=== PATIENT | female | born 1985 | race Caucasian/White ===

== ENCOUNTER 2022-01-07 20:16 | Emergency (ER) | payer MEDICAID, SELFPAY ==
[~2022-01-07] VITALS: Ht 160 cm; Wt 108.9 kg
[2022-01-07 20:35] VITALS: BP_SYST 114
--- NOTE | 2022-01-07 21:07 | NUR ---
Placed in room 4 . Placed on youth nutritional monitor, blood pressure machine and pulse oximeter. To gown for exam. Side rails up. Report given to Ruy LAWSON(reg).
[2022-01-07 21:33] LABS: BASOPHILS % (AUTO) 0.2 % (0.0-2.0); EOSINOPHILS # (AUTO) 0.4 K/uL (0.0-0.4); EOSINOPHILS % (AUTO) 2.9 % (0.0-4.0); HEMATOCRIT 38.6 % (36-48); HEMOGLOBIN 13.1 g/dL (12.0-16.0); LYMPHOCYTES # (AUTO) 0.4 K/uL (1.0-5.5); MEAN CORPUSCULAR HEMOGLOBIN 28 pg (27-31); MEAN CORPUSCULAR HGB CONC 34 % (32-36); MEAN CORPUSCULAR VOLUME 82 fL (79.0-98.0); MONOCYTES # (AUTO) 0.3 K/uL (0.0-1.0); MONOCYTES % (AUTO) 2.3 % (1.7-9.3); NEUTROPHILS # (AUTO) 13.6 K/uL (1.8-7.7); NEUTROPHILS % (AUTO) 91.6 % (40.0-70.0); PLATELET COUNT (AUTO) 184 K/uL (130-430); RED CELL DISTRIBUTION WIDTH 14.4 % (9.0-15.0); WHITE BLOOD COUNT (AUTO) 14.9 K/uL (4.8-10.8)
[2022-01-07 21:40] LABS: CALCIUM 9.3 mg/dL (8.4-11.0); CREATININE 0.9 mg/dL (0.55-1.30); POTASSIUM 4.1 mmol/L (3.5-5.1)
[2022-01-07 21:46] LABS: ALBUMIN 3.5 g/dL (3.4-4.8); TOTAL BILIRUBIN 0.7 mg/dL (0.0-1.0)
--- NOTE | 2022-01-07 22:15 | NUR ---
ER at bedside examining patient.
[2022-01-07] MEDS ORDERED: ACETAMINOPHEN 500 MG TABLET PO ONE (22:30)
[2022-01-07] MEDS ORDERED: NACL 0.9% 1,000 ML IV ONE (22:30)
[2022-01-07] MEDS ORDERED: ONDANSETRON 4 MG ODT TAB PO ONE (22:45)
[2022-01-07] MEDS ORDERED: ACETAMINOPHEN 500 MG TABLET ONE (22:54)
[2022-01-07] MEDS ORDERED: HYDROcodone/ACETAMIN 10-325 MG TAB PO ONE (23:00)
[2022-01-07] MEDS ORDERED: ACETAMINOPHEN 325 MG TABLET PO ONE (23:00)
--- NOTE | 2022-01-08 01:44 | NUR ---
pt is ALOx4 is complaning for Chest apin, headache, and generalize pain. She has history of Lupus, Fibromylagia and missed sometimes the medication. she was admitted in other hospital for vomiting with diagnosis bad or cold virus.
[2022-01-08 02:00] LABS: BILIRUBIN,URINE NEGATIVE (NEGATIVE); BLOOD, URINE NEGATIVE (NEGATIVE); CLARITY/URINE CLEAR (CLEAR); COLOR,URINE YELLOW (YELLOW); GLUCOSE,URINE NEGATIVE (NEGATIVE); KETONES,URINE NEGATIVE (NEGATIVE); LEUKOCYTE ESTERASE ,URINE TRACE (NEGATIVE); NITRITE, URINE NEGATIVE (NEGATIVE); PH,URINE 5.5 (5.0-8.0); PROTEIN URINE TRACE (NEGATIVE); UROBILINOGEN,URINE 0.2 (0.2-1.0)
[2022-01-08 02:50] VITALS: BP_SYST 120
--- NOTE | 2022-01-08 02:51 | NUR ---
Patient given written and verbal discharge instructions and verbalizes understanding. ER Rober Roland discussed with patient the results and treatment provided. Patient in stable condition. Rx of given. Patient educated on pain management and to follow up with PMD. Pain Scale . Opportunity for questions provided and answered. Medication side effect fact sheet provided.
[2022-01-08 03:08] LABS: BACTERIA,URINE FEW /HPF (None Seen); RBC,URINE 0-3 /HPF (0-3); URINE SULFO SALICYLIC ACID 1+ (NEGATIVE)
[2022-01-08 03:09] LABS: MUCUS,URINE 1+ /LPF (None Seen)
== END 2022-01-08 02:50 | disposition home or self-care (01) ==
LOC: SED 20:16
DX: J18.9 Pneumonia, unspecified organism (principal); Z20.822 Contact with and (suspected) exposure to COVID-19
CPT/HCPCS: 36415; 71045; 80053; 81000; 84702; 85025; 87086; 87426; 87804 ×2; 96360; 99284; J7030; Q0162